=== PATIENT | male | born 1980 | race Caucasian/White ===

== ENCOUNTER 2019-04-13 07:05 | Emergency (ER) | payer OTHER ==
[2019-04-13 07:31] VITALS: BP 132/87
--- NOTE | 2019-04-13 07:51 | ED ---
Throat Pain/Nasal Congestion - HPI Summary HPI Summary: 39 yo WM p/w B/L ear pain associated wiht sinus congestion , cough, sore throat x 3 days. Ear pain is somewhat worsening. - History of Current Complaint Chief Complaint: UCRespiratory Time Seen by Provider: 04/13/19 07:39 Hx Obtained From: Patient Onset/Duration: Sudden Onset Severity: Moderate Associated Signs And Symptoms: Positive: Negative Cough: Nonproductive - Allergies/Home Medications Allergies/Adverse Reactions: Allergies Allergy/AdvReac Type Severity Reaction Status Date / Time No Known Allergies Allergy Verified 04/13/19 07:23 Home Medications: Home Medications Dextromethorphan Hb/Doxylamine [Robitussin Nighttime Cough Dm] 10 ml PO PRN [History] PMH/Surg Hx/FS Hx/Imm Hx Previously Healthy: Yes Infectious Disease History: No Infectious Disease History: Denies: Traveled Outside the [place] in Last 30 Days - Family History Known Family History: Positive: Non-Contributory - Social History Alcohol Use: Occasionally Substance Use Type: Reports: None Smoking Status (MU): Never Smoked Tobacco Review of Systems Constitutional: Negative Eyes: Negative Positive: Sore Throat, Ear Ache, Nasal Discharge Cardiovascular: Negative Respiratory: Negative Gastrointestinal: Negative Genitourinary: Negative Musculoskeletal: Negative Skin: Negative Neurological: Negative All Other Systems Reviewed And Are Negative: Yes Physical Exam - Summary Physical Exam Summary: Appearance: Positive: No Pain Distress Skin: Positive: Warm Head/Face: Positive: Normal Head/Face Inspection Eyes: normal ENT: Positive: mild pharyngeal erythema w/o exudates Neck: Positive: Supple Respiratory/Lung Sounds: Positive: Clear to Auscultation. Negative: Rales, Rhonchi, Wheezes Cardiovascular: Positive: Normal, RRR, S1, S2 Abdomen : soft, NT/ND Musculoskeletal: Positive: Normal, Strength/ROM Intact Neurological: Positive: CN 2-12 grossly intact Vital Signs On Initial Exam: Initial Vitals Temp Pulse Resp BP Pulse Ox 36.4 C 59 16 132/87 97 04/13/19 07:25 04/13/19 07:25 04/13/19 07:25 04/13/19 07:25 04/13/19 07:25 Diagnostics - Vital Signs Vital Signs Temp Pulse Resp BP Pulse Ox 04/13/19 07:25 36.4 C 59 16 132/87 97 - Laboratory Lab Statement: Any lab studies that have been ordered have been reviewed, and results considered in the medical decision making process. EENT Course/Dx - Course Assessment/Plan: URI with worsening OM, may be progressing to OM in setting of URI, abx prescirbed to take if sx worsen in 48 hrs - Differential Diagnoses Differential Diagnoses: Otitis Media - Diagnoses Provider Diagnoses: Otitis media, URI, acute Discharge ED - Sign-Out/Discharge Documenting (check all that apply): Patient Departure All imaging exams completed and their final reports reviewed: No Studies - Discharge Plan Condition: Stable Disposition: HOME Prescriptions: Amoxicillin/Clavulanate TAB* [Augmentin TAB 875*] 875 mg PO BID 7 Days #14 tab Pseudoephedrine HCL ER TAB* [Sudafed 12 Hour*] 120 mg PO BID PRN 5 Days #10 tab.er PRN Reason: Congestion - Billing Disposition and Condition Condition: STABLE Disposition: Home
== END 2019-04-13 08:05 | disposition home or self-care (01) ==
LOC: UCCORT 07:05
DX: J06.9 Acute upper respiratory infection, unspecified (principal); H66.93 Otitis media, unspecified, bilateral
CPT/HCPCS: 99202; G0463